=== PATIENT | female | born 1970 | race Caucasian/White ===

== ENCOUNTER 2022-06-22 05:53 | Emergency (ER) | payer MEDICAID ==
[~2022-06-22] VITALS: Ht 165.1 cm; Wt 79.0 kg
[2022-06-22 06:08] VITALS: BP 146/82
[2022-06-22] MEDS: ACETAMINOPHEN 325MG TABLET PO ONE ×3 (08:16→08:57)
[2022-06-22] MEDS ORDERED: TOPUD PO (09:20)
== END 2022-06-22 11:19 | disposition home or self-care (01) ==
LOC: ER 05:53
DX: M79.18 Myalgia, other site (principal); E11.9 Type 2 diabetes mellitus without complications; I10 Essential (primary) hypertension; V43.62XA Car passenger injured in collision with other type car in traffic accident, initial encounter; Y93.89 Activity, other specified; Y92.410 Unspecified street and highway as the place of occurrence of the external cause
CPT/HCPCS: 72100; 73110; 73560; 99284